=== PATIENT | female | born 1990 ===

== ENCOUNTER → 2024-12-26 | Outpatient (CLI) | payer OTHER, BC ==
[2024-12-26] VITALS (21 sets, daily range): BP systolic 99–116; BP diastolic 65–81; PULSE 69–110
== END | disposition home or self-care (01) ==
LOC: CARD DIAG 07:51
PROVIDERS: ATTEND Internal Medicine Interventional Cardiology
DX: R42 Dizziness and giddiness (principal); R55 Syncope and collapse
CPT/HCPCS: 93660